=== PATIENT | male | born 1955 | race Caucasian/White ===

== ENCOUNTER 2016-09-16 10:51 | Inpatient (IN) | payer BC ==
[2016-09-16] MEDS ORDERED: NS 1,000 ML IV ONE ×2 (11:21)
[2016-09-16] MEDS ORDERED: SODIUM CHLORIDE 0.9% 3 ML FLUSH FLUSH PRN ×2 (11:21→13:44)
--- NOTE | 2016-09-16 11:32 | EDPRACDOC ---
Other History: NEW DIAGNOSIS OF ESOPHAGEAL CANCER STATUS POST ESOPHAGEAL STENT. DIFFICULTY SWALLOWING FOR 3-4 DAYS. I WOULD KEEP SOME LIQUIDS DOWN BUT MOST COMES RIGHT BACK UP. TREATMENT PLAN CONSISTED OF PLACEMENT OF PORT AND FEEDING TUBE FOR DR. RENTERIA AROUND OF [facility], AND THEN CHEMOTHERAPY AND RADIATION AROUND [facility] FOLLOWING DEFINITIVE SURGERY REMOTELY. 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 PT STATES WAS DX WITH ESOPHAGEAL CANCER AND TUMOR 1 MONTH AGO AND WENT TO [place] HAD STENT PLACED IN ESOPHAGUS BUT IT DIDNT WORK. PT HAS NO KNOWN H/O A.FIB. UPON ARRIVAL PT IS IN AFIB WITH RATE OF 155 ON BEDSIDE MONITOR. Symptoms Started: Reports: Suddenly Symptoms Description: Constant Weakness: Bilateral: Generalized Symptoms: Reports: Near Syncope, Weak Symptom Severity: Reports: Unable to performs ADL's Associated signs and symptoms:: Reports: None <Sidney Kumar - Last Filed: 09/16/16 13:41> - General Information Chief Complaint: Generalized Weakness Stated Complaint: WEAKNESS Time Seen by Provider: 09/16/16 11:18 Home Medications: Home Medications Ibuprofen 800 mg PO Q6H PRN 09/16/16 Allergies/Adverse Reactions: Allergies Allergy/AdvReac Type Severity Reaction Status Date / Time No Known Drug Allergies Allergy Unknown Verified 09/16/16 11:29 ED Past Medical History - History Reviewed Yes Nurses notes reviewed and agree except as marked Travel Outside of US in the Last 3 Months?: No - Patient Medical History Cardiac History: Reports: Other (PALPITATIONS) GI/ History: Reports: PMH GI Yes/No Other (ESOPHAGEAL CANCER AND TUMOR DXD 1 MONTH AGO) Psychological History: Denies: Depression Systemic History: Reports: Cancer (esophageal x 30 days) - Social Medical History Smoking Status: Former smoker ETOH: None Substance Abuse: None Lives With: Spouse Lives In: Home <Sidney Kumar - Last Filed: 09/16/16 13:41> EDM Review of Systems - Review of Systems ROS Negative Except as Marked: Yes All systems reviewed and were negative except as marked Constitutional: No Symptoms Reported. negative: Fever, Chills, Weakness, Fatigue, Loss of Appetite Eyes: No Symptoms Reported. negative: Redness, Blurred Vision, Double Vision, Discharge, Pain, Light Sensitive, Photophobia Ears: No Symptoms Reported. negative: Pain, Hearing Loss, Drainage, Ear Pulling Throat: No Symptoms Reported. negative: Pain, Swelling Nose: No Symptoms Reported. negative: Congestion, Bleeding, Discharge, Injection, Swelling, Deformity, Ecchymosis, Tender, Abrasion, Laceration Mouth: No Symptoms Reported. negative: Pain, Drooling Respiratory: Shortness of Breath (MILD). negative: Barky Cough, Brassy Cough, Cough, Hemoptysis, Wheezing Cardiovascular: Palpitations. negative: Chest Pain, Cyanosis, Edema, Orthopnea , PND, Syncope, Skin Mottling Gastrointestinal: No Symptoms Reported. negative: Pain, Constipation, Nausea, Vomiting, Diarrhea, Melena, Formula Intolerance Genitourinary: No Symptoms Reported. negative: Dysuria, Hematuria, Frequency, Discharge, Bleeding, Testicular Pain, Neurological: No Symptoms Reported. negative: Headache, Dizziness, Seizure, Numbness, Weakness, Speech Difficulty, Gait Difficulty Musculoskeletal: No Symptoms Reported. negative: Neck, Chestwall, Ribs, Back, Shoulder, Arm, Elbow, Forearm, Wrist, Hand, Pelvis, Hip, Femur, Knee, Leg, Ankle , Foot Integumentary: No Symptoms Reported. negative: Itching, Rash, Bruising, Wound Allergic/Immunologic: No Symptoms Reported. negative: Hives, Itching Hematologic: No Symptoms Reported. negative: Lymphadenopathy, Easy Bruising, Easy Bleeding Endocrine: No Symptoms Reported. negative: Weight Gain, Weight Loss Psychiatric: No Symptoms Reported. negative: Anxiety, Depression, Hallucinations, Insomnia, Suicidal <Sidney Kumar - Last Filed: 09/16/16 13:41> - Physical Exam Last recorded Vital Signs: Last Vital Signs Temp 98.2 F 09/16/16 11:11 Pulse 157 H 09/16/16 11:38 Resp 15 09/16/16 11:38 BP 112/68 09/16/16 11:38 Pulse Ox 94 09/16/16 11:38 Oxygen Pulse Oxygen Saturation 94 O2 Device Room Air Oxygen Flow Rate Fraction of Inspired Oxygen ( FIO2) <Vazquez,Jessica Paul - Last Filed: 09/16/16 12:49> - Physical Exam Constitutional: No apparent distress, Alert (Awake) Oriented to: Time, Person, Place Last recorded Vital Signs: Last Vital Signs Temp 98.2 F 09/16/16 11:11 Pulse 112 09/16/16 11:17 Resp 19 09/16/16 11:17 BP 110/78 09/16/16 11:17 Pulse Ox 95 09/16/16 11:17 Oxygen Pulse Oxygen Saturation 95 O2 Device Oxygen Flow Rate Fraction of Inspired Oxygen ( FIO2) - HEENT Head: Normal ( normocephalic) Eye Exam: Normal (PERRL, EOMI, Sclera white) Oropharynx: Normal (Pharynx:Moist without exudate,Gums-no swelling) Tympanic Membrane: Normal ENT EAC: Normal TMJ: Normal Nose: No Symptoms Reported (septum midline) Neck: Normal (FROM, trachea at midline) - Respiratory/Cardiovascular Respiratory: Diminished Cardiovascular: Tachycardia, Irregular (PRESUMED AFIB) - GI Auscultation: Normal (NABS) Palpation: Normal (Soft,No rebound or guarding, non distended) Tenderness: Non tender Sexton's Sign: Negative - Musculoskeletal Back: Normal (Non-Tender) Extremities: Normal (Normal tone, Pulses 2+ No cyanosis or edema, FROM) - Integumentary Skin: Normal, Warm, Dry Lymphatics: Normal (no adenopathy) - Neurologic Memory Impaired: Normal Motor Function: Normal (Normal tone, Pulses 2+ No cyanosis or edema, FROM) Cranial Nerve: Normal (CN II-X11 intact sensation, strength 5/5) Cerebellar: Normal Mood Description: Normal Perception: Normal <Sidney Kumar - Last Filed: 09/16/16 13:41> NIH Stroke Scale Initial Evaluation Level of Consciousness: Alert LOC- Question: Answers Both Correctly LOC Commands: Both Task Correctly Best Gaze: Normal Visual: No Visual Loss Facial Palsy: Normal Movement Motor Arm LEFT: No Drift Motor Arm RIGHT: No Drift Motor Leg LEFT: No Drift Motor Leg RIGHT: No Drift Limb Ataxia: Absent Sensory: Normal Best Language: No Aphasia Dysarthria: Normal Extinction and Inattention: No Abnormality (Neglect) Score: 0out of42 <Sidney Kumar - Last Filed: 09/16/16 13:41> - Results 01/16/17 11:28 09/16/16 11:28 WBC 9.1 xk/uL (3.8-10.8) 09/16/16 11:28 RBC 5.32 xM/uL (4.70-6.10) 09/16/16 11:28 Hgb 17.9 g/dL (14.0-18.0) 09/16/16 11:28 Hct 52.2 % (42-52) H 09/16/16 11:28 MCV 98 fL (80-94) H 09/16/16 11:28 MCH 33.6 pg (27-32) H 09/16/16 11:28 MCHC 34.3 g/dl (33-36) 09/16/16 11:28 RDW 12.5 % (11.5-14.5) 09/16/16 11:28 Plt Count 156 xk/uL (130-400) 09/16/16 11:28 MPV 9.6 fL (7.4-10.4) 09/16/16 11:28 Neut % (Auto) 77.8 % (45-76) H 09/16/16 11:28 Lymph % (Auto) 11.8 % (17-44) L 09/16/16 11:28 [place] % (Auto) 8.2 % (3-10) 09/16/16 11:28 Eos % (Auto) 1.8 % (0-5) 09/16/16 11:28 Baso % (Auto) 0.4 % (0-2) 09/16/16 11:28 Absolute Neuts (auto) 7.01 xk/uL (1.7-8.2) 09/16/16 11:28 Absolute Lymphs (auto) 1.00 xk/uL (0.65-4.75) 09/16/16 11:28 PT 12.8 SEC (9.2-11.2) H 09/16/16 11:28 INR 1.2 09/16/16 11:28 APTT 30.4 SEC (22-35) 09/16/16 11:28 Sodium 138 mEq/L (137-146) 09/16/16 11:28 Potassium 2.4 mEq/L (3.5-5.1) L* 09/16/16 11:28 Chloride 96 mEq/L (98-107) L 09/16/16 11:28 Carbon Dioxide 31 mMOL/L (22-33) 09/16/16 11:28 Anion Gap 13 mEq/L (8-16) 09/16/16 11:28 BUN 26 MG/DL (9-20) H 09/16/16 11:28 Creatinine 0.70 MG/DL (0.66-1.25) 09/16/16 11:28 Estimated GFR (MDRD) > 60 mL/min (>=60) 09/16/16 11:28 Glucose 99 MG/DL (70-99) 09/16/16 11:28 Calculated Osmolality 271 MOs/Kg (270-290) 09/16/16 11:28 Calcium 8.8 MG/DL (8.4-10.2) 09/16/16 11:28 Corrected Calcium 9.5 MG/DL (8.4-10.2) 09/16/16 11:28 Total Bilirubin 1.1 MG/DL (0.2-1.3) 09/16/16 11:28 AST 14 IU/L (17-59) L 09/16/16 11:28 ALT 20 IU/L (21-72) L 09/16/16 11:28 Alkaline Phosphatase 70 IU/L (38-126) 09/16/16 11:28 Troponin I < 0.01 ng/mL (<.04) 09/16/16 11:28 Vqo-M-Dpysmwtgoqy Pept 529 pg/mL (0-900) 09/16/16 11:28 Total Protein 6.8 G/DL (6.3-8.2) 09/16/16 11:28 Albumin 3.3 G/DL (3.5-5.0) L 09/16/16 11:28 Lab Results 09/16/16 09/16/16 09/16/16 11:28 11:28 11:28 WBC 9.1 RBC 5.32 Hgb 17.9 Hct 52.2 H MCV 98 H MCH 33.6 H MCHC 34.3 RDW 12.5 Plt Count 156 MPV 9.6 Neut % (Auto) 77.8 H Lymph % (Auto) 11.8 L [place] % (Auto) 8.2 Eos % (Auto) 1.8 Baso % (Auto) 0.4 Absolute Neuts (auto) 7.01 Absolute Lymphs (auto) 1.00 PT 12.8 H INR 1.2 APTT 30.4 Sodium 138 Potassium 2.4 L* Chloride 96 L Carbon Dioxide 31 Anion Gap 13 BUN 26 H Creatinine 0.70 Estimated GFR (MDRD) > 60 Glucose 99 Calculated Osmolality 271 Calcium 8.8 Corrected Calcium 9.5 Total Bilirubin 1.1 AST 14 L ALT 20 L Alkaline Phosphatase 70 Troponin I < 0.01 Bwk-Q-Llmepyqapmt Pept 529 Total Protein 6.8 Albumin 3.3 L - Diagnostic Imaging Chest Image interpreted by: Radiologist Patient Name: PINA SCHROEDER LOC: ED : 1955 AGE: 61 Order Date:09/16/16 Date of Service: Report # [id number] Ord Physician: Sidney Kumar Exam # [id number] Emergency Physician: Provider,ER Exam(s): [id number] RAD/DG CHEST PORTABLE CLINICAL DATA: Onset of dizziness and lightheadedness this morning. Initial encounter. EXAM: PORTABLE CHEST 1 VIEW COMPARISON: None. FINDINGS: The lungs are clear. Heart size is normal. There is no pneumothorax or pleural effusion. No focal bony abnormality is identified. IMPRESSION: Negative chest. Electronically Signed By: Moe Boss M.D. On: 09/16/2016 12:20 Electronically Signed By: Moe Dyson MD Electronically Signed Date/Time: 223 Dictate Date/Time: 09/16/16 1220 Technologist: Josselin Alaniz Transcribed By: Jackson Transcribed Date/Time: 09/16/16 1220 <Jessica Vazquez - Last Filed: 09/16/16 12:49> - Differential Diagnosis Anemia, Dehydration, Electrolyte disorder, Other (AFIB WITH RVR) - Re-evaluation Re-evaluation 1 Re-evaluation Time: 11:44 (PT HAD SEVERAL MINUTES OF RATE CONTROLLED AFIB BUT IS NOW BOUNCING BETWEEN 109 AND 150 HR. ) - Results 09/16/16 11:28 09/16/16 11:28 - EKG EKG #1 EKG Time: 11:21 -: Yes EKG interpreted by me Rate: bpm: 130 [place]: Normal Rhythm: Afib (WITH RVR), PVCs Block: None Hypertrophy: None ST: Inf (POSSIBLE INFERIOR SUBENDOCARDIAL INJURY) <Sidney Kumar - Last Filed: 09/16/16 13:41> - Departure Yes I personally saw and evaluated the patient. Decision to Admit Time: 12:56 Decision to admit date: 09/16/16 Decision to admit: from ED - Physician Consulted Hospitalist Time Called: 12:50 Provider Called: Parris Sargent Time Senior Infrastructure Architect Returned Call: 12:54 <Jessica Vazquez - Last Filed: 09/16/16 12:49> - Departure Education/Counseling Given To: Patient Education/Counseling Given Regarding: Diagnosis, Treatment, Prognosis, Follow Up <Sidney Kumar - Last Filed: 09/16/16 13:41> - Departure Final Diagnosis: Hypokalemia, Atrial fibrillation with rapid ventricular response, Dehydration Esophageal cancer Qualifiers: Malignant neoplasm of esophagus location: unspecified location Qualified Code(s ): C15.9 - Malignant neoplasm of esophagus, unspecified Instructions: Weakness (General), Atrial Fibrillation (ED) Referrals: None,No Provider [Primary Care Provider] - One Week Forms: ED Discharge Instructions
[2016-09-16 11:42] LABS: AUTOMATED BASOPHIL 0.4 % (0-2); AUTOMATED EOSINOPHIL 1.8 % (0-5); AUTOMATED LYMPH 11.8 % (17-44); AUTOMATED MONOCYTE 8.2 % (3-10); AUTOMATED NEUTROPHIL 77.8 % (45-76); MPV 9.6 fL (7.4-10.4)
[2016-09-16] MEDS ORDERED: DILTIAZEM 25 MG/5 ML VIAL IV ONE (11:45)
[2016-09-16] MEDS: DILTIAZEM 25 MG/5 ML VIAL IV ONE ×2 (11:46→12:51)
[2016-09-16 11:53] LABS: PARTIAL THROMB. TIME 30.4 SEC (22-35); PT-INR 1.2
[2016-09-16] MEDS ORDERED: Diltiazem HCl 100 MG in D5W 100 ML IV SCH ×2 (12:00→13:49)
[2016-09-16] MEDS ORDERED: Pharmacy Review for Metformin - IV Contrast Given SCH (12:00)
[2016-09-16 12:03] LABS: BLOOD UREA NITROGEN 26 MG/DL (9-20); CALC CORRECTED 9.5 MG/DL (8.4-10.2); CALCIUM 8.8 MG/DL (8.4-10.2); CALCULATED OSMOLALITY 271 MOs/Kg (270-290); CHLORIDE 96 mEq/L (98-107); GLUCOSE 99 MG/DL (70-99); SODIUM LEVEL 138 mEq/L (137-146); TOTAL PROTEIN 6.8 G/DL (6.3-8.2)
--- NOTE | 2016-09-16 12:23 | DIRPT ---
CLINICAL DATA: Onset of dizziness and lightheadedness this morning. Initial encounter. EXAM: PORTABLE CHEST 1 VIEW COMPARISON: None. FINDINGS: The lungs are clear. Heart size is normal. There is no pneumothorax or pleural effusion. No focal bony abnormality is identified. IMPRESSION: Negative chest. Electronically Signed By: Moe Boss M.D. On: 09/16/2016 12:20
[2016-09-16] MEDS: Diltiazem HCl 100 MG in D5W 100 ML IV SCH ×3 (12:50→22:25)
[2016-09-16] MEDS ORDERED: ACETAMINOPHEN 325 MG/TAB TABLET PO PRN (13:44)
[2016-09-16] MEDS ORDERED: Aluminum;Magnesium;Simethicone 30 ML UDC PO PRN (13:44)
[2016-09-16] MEDS ORDERED: ONDANSETRON HCL 4 MG/2 ML VIAL IV PRN (13:44)
[2016-09-16] MEDS ORDERED: ALBUTEROL 0.083% 3 ML NEB NEB PRN (13:44)
[2016-09-16] MEDS ORDERED: METOCLOPRAMIDE 10 MG/2 ML VIAL IV PRN (13:44)
[2016-09-16] MEDS ORDERED: ACETAMINOPHEN 650 MG SUPP PR PRN (13:44)
[2016-09-16] MEDS ORDERED: TUSSIONEX 5 ML ORAL SYRINGE PO PRN (13:44)
[2016-09-16] MEDS ORDERED: MAGNESIUM HYDROXIDE 30 ML BOTTLE PO PRN (13:44)
--- NOTE | 2016-09-16 13:51 | DIRPT ---
ADDENDUM REPORT: 09/16/2016 14:19 ADDENDUM: The lesion in the right lobe of the liver is likely a cyst. It is not completely imaged or characterized on this examination given borderline attenuation value. Consider hepatic ultrasound to confirm that it is a cyst. Electronically Signed By: Awais Pham M.D. On: 09/16/2016 14:19 CLINICAL DATA: Hypoxia, new onset atrial fibrillation, history of esophageal cancer, weakness and dizziness this morning EXAM: CT ANGIOGRAPHY CHEST WITH CONTRAST TECHNIQUE: Multidetector CT imaging of the chest was performed using the standard protocol during bolus administration of intravenous contrast. Multiplanar CT image reconstructions and MIPs were obtained to evaluate the vascular anatomy. CONTRAST: 80 mL Isovue 370 COMPARISON: 09/16/2016 chest radiograph FINDINGS: No filling defects in the pulmonary arterial. No evidence of thoracic aortic dilatation. There is severe dilatation of the esophagus to 4 cm diameter. An esophageal stent extends from the level of the thoracic inlet into the more distal esophagus 3 cm below the guille. Dilatation extends all the way to the gastroesophageal junction. The esophagus and the stent are both filled with solid material in the upper thorax. There are tiny calcified right hilar lymph nodes. There is no enlarged adenopathy in the thorax. Lungs are clear. No pleural effusions. Images through the upper abdomen demonstrate a low-attenuation lesion in the posterior right lobe of the liver measuring about 1.5 cm with average attenuation value of 25. There is mild fullness of both adrenal glands with no adrenal gland mass. There are no acute or focally suspicious osseous abnormalities. The T11 vertebral body shows mild superior endplate compression deformity which appears nonacute. There is mild compression deformity of T8 and T9 also without evidence of acute fracture. Review of the MIP images confirms the above findings. IMPRESSION: No evidence of pulmonary arterial embolism. Severe diffuse esophageal dilatation with stent as described above. Electronically Signed: By: Awais Pham M.D. On: 09/16/2016 13:48
[2016-09-16] MEDS ORDERED: OXYCODONE HCL 5 MG TABLET PO PRN ×2 (13:53→13:54)
[2016-09-16] MEDS: KCl 10 mEq/100 ml Premix (Run) 10 MEQ/100 ML RTU IV SCH ×2 (13:53→16:30)
[2016-09-16] MEDS ORDERED: MORPHINE 2 MG/ML INJECTION IV PRN (13:55)
--- NOTE | 2016-09-16 13:59 | HISTPHYS ---
- Chief Complaint Dizziness and generally feeling very ill with palpitations since this morning. - History of Present Illness 61-year-old gentleman presents to our emergency department complaining of dizziness and palpitations which were severe this morning. He has had previous episodes of this but never sought any attention for it. He associates it with taking medications or things that would make his heart rate go up. Patient significant past medical history is that a month ago he was diagnosed with esophageal cancer at [place]. He was sent to [facility] for placement of an esophageal stent which was rather successful except that several days after placement of the stent it migrated into his colon. Recent x-ray or films show that he has a metal object in his ascending colon. And no stent is noted in the esophagus. He has had great difficulty drinking anything or even eating anything he is unable to even get liquids in. According to his son he has had a greater than 30 lb weight loss since August. Patient in the emergency department was trying to have some ice chips and kept regurgitating them he was unable to swallow them. He has great difficulty recently with dehydration given that he cannot eat or drink anything. In the emergency department an EKG was obtained and showed atrial fibrillation with rapid ventricular response. He was given a dose of diltiazem and his heart rate is coming down nicely. He is on a diltiazem drip. He has scheduled him today for a PEG tube and port placement. That had to be canceled. I have a call in to Dr. Quispe to reschedule for tomorrow. Given his above signs and symptoms and very generally poor condition at this point patient will be admitted into the hospital for further evaluation and management of atrial fibrillation. - Medical History Cardiac History: Reports: Other (PALPITATIONS) Respiratory History: Reports: No Significant History GI/ History: Reports: PMH GI Yes/No Other (ESOPHAGEAL CANCER AND TUMOR DXD 1 MONTH AGO) Musculoskeletal History: Reports: No Significant History Systemic History: Reports: Cancer (esophageal x 30 days) Neurological History: Reports: No Significant History Psychological History: Reports: No Significant History. Denies: Depression - Surgical History Reports: Other (Esophageal stent placement) - Medictions/Allergies Allergies No Known Drug Allergies Allergy (Verified 09/16/16 11:29) Unknown Current Medication List: Reviewed Home Medications Ibuprofen 800 mg PO Q6H PRN 09/16/16 - Family History Reports: No Significant History - Social History Travel Outside of US in the Last 3 Months?: No Lives: with Spouse, With Family Smoking Status: Heavy tobacco smoker (5 or more cigarettes/day or daily pipe/ cigar) (Patient quit after he finished his pack a cigarettes over the weekend) Social History: Denies: Alcohol Use, Substance Use Disorder - Review of Systems Constitutional: Fatigue, Weakness, Weight loss. negative: Chills, Fever, Diaphoresis Eyes: No Symptoms Reported (No blurry vision, visual changes, eye pain, or eye redness.) Ears: No Symptoms Reported (No ear pain or discharge) Nose: No Symptoms Reported (No nasal discharge/congestion or bleeding) Mouth: No Symptoms Reported (No oropharyngeal lesions or erythema) Throat/Neck: No Symptoms Reported (No throat pain or swelling.No oropharyngeal lesions or erythema.) Respiratory: No Symptoms Reported Cardiovascular: Palpitations Gastrointestinal: Nausea, Vomiting, Dysphasia Genitourinary: No Symptoms Reported (No dysuria or hematuria.) Neurological: No Symptoms Reported (No headache, dizziness, seizures, or focal weakness.) Musculoskeletal:: No Symptoms Reported Integumentary: No Symptoms Reported (no rashes or lesions) Hematologic: No Symptoms Reported (No chronic anemia, bleeding, or easy bruising.), Other (Lymphatics- no lymph node swelling or pain.) Endocrine: No Symptoms Reported (No thyroid issues, polyuria, or polydipsia.) Psychiatric: No Symptoms Reported (Fully oriented, with normal and appropriate affect.) - Physical Exam Vital Signs: Initial Vitals Temperature 98.2 F 09/16/16 11:11 Pulse Rate 128 H 09/16/16 11:11 Respiratory Rate 16 09/16/16 11:11 Blood Pressure 138/92 09/16/16 11:11 Pulse Oxygen Saturation 95 09/16/16 11:11 Constitutional: Cachectic, Distress (Retching). negative: Well nourished, Well appearing - HEENT Head: Normal (normocephalic, atraumatic.), Other (No cervical lymphadenopathy. No supraclavicular lymphadenopathy. Neck: No palpable mass, supple , trachea midline.) Eye: Normal (pupils equal, reactive to light, and round; EOMI, Sclera white) Nose: No Symptoms Reported (septum midline, Nares patent, without discharge or bleeding.) Respiratory: Normal - CTA (Clear to auscultation bilaterally. No wheezing, rales , rhonchi. Chest wall movements are symmetric. No use of accessory muscles to breathe.) Cardiovascular: Tachycardia, Irregular - GI Auscultation: Normal (normal active sounds) Palpation: Normal (Soft,non distended,nontender. No hepatosplenomegaly.) Tenderness: Non tender (No rebound or guarding) - Musculoskeletal Back: Normal (Non-Tender) Extremities: Normal (Normal tone, DP pulses 2+ bilaterally, No cyanosis or edema bilaterally, FROM bilaterally.) - Integumentary Skin: Normal (Clean, dry, and intact. No rashes. No lesions.) Lymphatics: Normal (No cervical lymphadenopathy. No supraclavicular lymphadenopathy.) - Neurologic Memory Impaired: Normal Motor Function: Normal (Motor 5/5 throughout.Normal tone, Pulses 2+ No cyanosis or edema, FROM) Cranial Nerve: Normal (CN II-XII intact sensation, strength 5/5) Cerebellar: Normal Mood Description: Normal (Fully oriented. Normal and appropriate affect.) Thought: Coherent Perception: Normal - Focused CV Perfusion Exam Vital Signs: Last Vital Signs Temp 98.2 F 09/16/16 11:11 Pulse 76 09/16/16 13:21 Resp 20 09/16/16 13:21 BP 145/82 09/16/16 13:21 Pulse Ox 95 09/16/16 13:21 - Lab Results Laboratory Tests 09/16/16 09/16/16 09/16/16 11:28 11:28 11:28 WBC 9.1 RBC 5.32 Hgb 17.9 Hct 52.2 H MCV 98 H MCH 33.6 H MCHC 34.3 RDW 12.5 Plt Count 156 MPV 9.6 Neut % (Auto) 77.8 H Lymph % (Auto) 11.8 L [place] % (Auto) 8.2 Eos % (Auto) 1.8 Baso % (Auto) 0.4 Absolute Neuts (auto) 7.01 Absolute Lymphs (auto) 1.00 PT 12.8 H INR 1.2 APTT 30.4 Sodium 138 Potassium 2.4 L* Chloride 96 L Carbon Dioxide 31 Anion Gap 13 BUN 26 H Creatinine 0.70 Estimated GFR (MDRD) > 60 Glucose 99 Calculated Osmolality 271 Calcium 8.8 Corrected Calcium 9.5 Phosphorus Magnesium Total Bilirubin 1.1 AST 14 L ALT 20 L Alkaline Phosphatase 70 Troponin I < 0.01 Rwm-T-Hclzbyzzthe Pept 529 Total Protein 6.8 Albumin 3.3 L 09/16/16 11:28 WBC RBC Hgb Hct MCV MCH MCHC RDW Plt Count MPV Neut % (Auto) Lymph % (Auto) [place] % (Auto) Eos % (Auto) Baso % (Auto) Absolute Neuts (auto) Absolute Lymphs (auto) PT INR APTT Sodium Potassium Chloride Carbon Dioxide Anion Gap BUN Creatinine Estimated GFR (MDRD) Glucose Calculated Osmolality Calcium Corrected Calcium Phosphorus 3.3 Magnesium 2.20 Total Bilirubin AST ALT Alkaline Phosphatase Troponin I Joz-M-Oikylvdzuyq Pept Total Protein Albumin - Diagnostic Findings EXAM: CT ANGIOGRAPHY CHEST WITH CONTRAST TECHNIQUE: Multidetector CT imaging of the chest was performed using the standard protocol during bolus administration of intravenous contrast. Multiplanar CT image reconstructions and MIPs were obtained to evaluate the vascular anatomy. CONTRAST: 80 mL Isovue 370 COMPARISON: 09/16/2016 chest radiograph FINDINGS: No filling defects in the pulmonary arterial. No evidence of thoracic aortic dilatation. There is severe dilatation of the esophagus to 4 cm diameter. An esophageal stent extends from the level of the thoracic inlet into the more distal esophagus 3 cm below the guille. Dilatation extends all the way to the gastroesophageal junction. The esophagus and the stent are both filled with solid material in the upper thorax. There are tiny calcified right hilar lymph nodes. There is no enlarged adenopathy in the thorax. Lungs are clear. No pleural effusions. Images through the upper abdomen demonstrate a low-attenuation lesion in the posterior right lobe of the liver measuring about 1.5 cm with average attenuation value of 25. There is mild fullness of both adrenal glands with no adrenal gland mass. There are no acute or focally suspicious osseous abnormalities. The T11 vertebral body shows mild superior endplate compression deformity which appears nonacute. There is mild compression deformity of T8 and T9 also without evidence of acute fracture. Review of the MIP images confirms the above findings. IMPRESSION: No evidence of pulmonary arterial embolism. Severe diffuse esophageal dilatation with stent as described above. Electronically Signed By: Awais Pham M.D. On: 09/16/2016 13:48 EXAM: PORTABLE CHEST 1 VIEW COMPARISON: None. FINDINGS: The lungs are clear. Heart size is normal. There is no pneumothorax or pleural effusion. No focal bony abnormality is identified. IMPRESSION: Negative chest. Electronically Signed By: Moe Boss M.D. On: 09/16/2016 12:20 - Assessment (1) Atrial fibrillation with rapid ventricular response I48.91 - UNSPECIFIED ATRIAL FIBRILLATION Acute Present on Admission: Yes Admit start on diltiazem drip consult Cardiology. (2) Sudden blockage of esophagus K22.2 - ESOPHAGEAL OBSTRUCTION Acute Present on Admission: Yes Will ask Dr. Marcum to evaluate suspect that stents may have moved down into his GI tract. (3) Dehydration E86.0 - DEHYDRATION Acute Present on Admission: Yes IV fluid resuscitation. (4) Esophageal cancer C15.9 - MALIGNANT NEOPLASM OF ESOPHAGUS, UNSPECIFIED Chronic Present on Admission: Yes Qualifiers: Malignant neoplasm of esophagus location: lower third Qualified Code(s): C15.5 - Malignant neoplasm of lower third of esophagus For radiation and chemo per Dr. sada Saldivar. (5) Hypokalemia E87.6 - HYPOKALEMIA Acute Present on Admission: Yes Replete IV. Case Care Discussed with: Patient, Nursing Staff Total Time: 55 minutes Critical Care: No Couseling Time (>50% in counseling/coordination): No
[2016-09-16] MEDS: SODIUM CHLORIDE 0.9% 3 ML FLUSH FLUSH SCH (14:52)
[2016-09-16] MEDS: NS 1,000 ML IV SCH ×2 (15:00→16:22)
--- NOTE | 2016-09-16 15:27 | CAPUECHO ---
INDICATION: NEW DX A-FIB HEIGHT: 185.4 cm (6 ft 1.0 in) WEIGHT: 68.0 kg (150.0 lbs) BP: 128/85 BSA: 1.800261 m MEASUREMENTS 2D RVIDd: 2.5 cm LVOT Diam: 2.1 cm EF Biplane: 61.31 % LAESV MOD A4C: 37.0 ml LAESV MOD A2C: 46.8 ml LAESV Index (A-L): 30.61 ml/m M-MODE IVSd: 0.8 cm LVIDd: 5.8 cm LVPWd: 0.8 cm LVIDs: 3.9 cm EF(Teich): 60 % Ao Diam: 3.2 cm LA Diam: 2.8 cm DOPPLER MV E Kyrie: 0.49 m/s MV A Kyrie: 0.79 m/s MV PHT: 18.03 ms MVA By PHT: 12.20 cm LVOT Vmax: 1.03 m/s AV Vmax: 2.20 m/s DANY Vmax, Pt: 1.62 cm TR Vmax: 2.73 m/s TR maxP mmHg RVSP: 50.92 mmHg FINDINGS ------- Procedure:2D images, m-mode, color and spectral Doppler were obtained and reviewed. ECG rhythm:Atrial fibrillation. Resting tachycardia (HR>100bpm). Study quality:This was a technically adequate study. Left Ventricle:The left ventricular size is normal. Left ventricular wall thickness is normal. T here is normal global left ventricular contractility. Overall left ventricular systolic function i s normal with, an EF between 60 - 65 %. No regional wall motion abnormalities were noted. Right Ventricle:The right ventricle is normal in size and function. Left Atrium:Left atrium is mildly dilated by volume. Right Atrium:The right atrium is normal in size and function. Aortic Valve:There is mild aortic valve sclerosis. There is vyou-yt-nozdnqae aortic regurgitation. The aortic pressure half-time by doppler 414ms. There is no evidence of aortic stenosis. Mitral Valve:Normal appearing mitral valve. No mitral regurgitation. Tricuspid Valve:The tricuspid valve appears structurally normal. Mild tricuspid regurgitation pres ent. The right ventricular systolic pressure, as measured by Doppler, is 51mmHg. Pulmonic Valve:The pulmonic valve is normal. Trace/mild (physiologic) pulmonic regurgitation. Aorta:The aortic root, ascending aorta and aortic arch not visualized. IVC:Normal inferior vena cava with normal inspiratory collapse. Pericardium:The pericardium is normal. There is no pericardial effusion. CONCLUSIONS 1. Atrial fibrillation. 2. There is normal global left ventricular contractility. 3. Overall left ventricular systolic function is normal with, an EF between 60 - 65 %. 4. Left atrium is mildly dilated by volume. 5. There is jamg-gg-kaftmmzx aortic regurgitation. Electronically Signed By: Nilo Francisco MD, FACC Electronically Signed On: 15:27:16
[2016-09-16] MEDS: Albuterol/Ipratropium Neb 3 ML NEB NEB SCH ×2 (15:45→19:06)
[2016-09-16] MEDS: BuPROPion 150 MG SR TAB PO SCH (16:19)
[2016-09-16] MEDS: NICOTINE 21 MG PATCH TOP SCH (16:19)
[2016-09-16] MEDS: NS/KCl 20 mEq 1,000 ML IV SCH ×2 (16:20→22:20)
[2016-09-16 16:28] LABS: LEUKOCYTES/URINE NEG (NEGATIVE); NITRITE/URINE NEG (NEGATIVE); URINE OCCULT BLOOD NEG (NEG/TRACE)
[2016-09-16] MEDS ORDERED: Vaccine Screening Complete SCH (17:00)
[2016-09-16] MEDS ORDERED: SODIUM CHLORIDE 0.9% 3 ML FLUSH FLUSH SCH (18:00)
[2016-09-16] MEDS ORDERED: ENOXAPARIN 40 MG/0.4 ML PFS SQ SCH (18:00)
[2016-09-16] MEDS: METOPROLOL TARTRATE 50 MG TAB PO SCH (20:36)
--- NOTE | 2016-09-16 23:10 | PMOCONSULT ---
Date of Service:: 09/13/16 Medical Oncology Consultation: HISTORY OF PRESENT ILLNESS: The patient is a 61-year-old gentleman who I was asked to consult upon for newly diagnosed esophageal cancer. According to the patient, he has had dysphagia for the past 2 months. In July 2016, he recalls increasing the amount of Rolaids he was taking on a daily basis. However, this did not help. His primary care physician then placed him on reflux medicine, but his dysphagia persisted. Eventually, he was sent for a barium swallow, which came back markedly abnormal. This led to him undergoing an EGD at [facility], which showed a malignant stricture in his mid esophagus, approximately 30 cm from his incisors. This lesion extended 10 cm. A biopsy of this lesion was done, which came back consistent with moderately differentiated squamous cell carcinoma. During this procedure, an esophageal stent was placed, which briefly help with his dysphagia. However, over the next few days, his dysphagia gradually returned. Currently, this gentleman essentially throws up everything he consumes. He has also had a significant decrease in his urinary output. His claims he was hospitalized recently and was given 7 L of fluid to make him euvolemic. The patient claims he has not had a bowel movement in 2 weeks. He also has lost 66 lb since April 2016. Staging CT scans were done in August 2016, for which a subtle irregularity could be seen in his mid esophageal wall, which was concerning for invasion of his cancer into his paraesophageal fat. Also seen was a 1.1 cm gastrohepatic ligament lymph node that was worrisome for lawson metastasis. A 7mm sclerotic lesion was seen in his left femoral head. A small pulmonary nodule in his right upper lobe was also seen. Both lesions were too small to determine their significance. Incidentally seen was a metallic body in his ascending colon. There was no evidence of metastatic disease to any internal organs. PAST MEDICAL HISTORY: Essentially unremarkable. However, this patient was not being routinely followed by a primary care physician. PAST SURGICAL HISTORY: He has had no previous surgeries CURRENT MEDICATIONS: Ibuprofen p.r.n. ALLERGIES: He has no known drug allergies FAMILY HISTORY: His mother from a heart attack. His father from complications of cirrhosis. He has 1 brother who has had at least 3 heart attacks. SOCIAL HISTORY: The patient was born and raised in [facility] [place] He currently lives in the [place] community with his of 38 years. He has 2 children and 5 grandchildren. 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 He has smoked at least a pack of cigarettes daily for the past 45 years. He quit alcohol a few months ago, but was routinely drinking as many as 8-10 beers daily for numerous years. REVIEW OF SYSTEMS: CARBONATOR: The patient denies headaches, changes in hearing, vision, balance or coordination. PULMONARY: The patient has an occasional productive cough of clear phlegm. CARDIAC: The patient denies angina, heart palpitations, or heart failure issues. GI: The patient has upper abdominal pain, dysphagia, and odynophagia. He has not had any bowel movements over the past few weeks. : The patient denies hematuria, dysuria, or increased urinary frequency. MUSCULOSKELETAL: The patient denies arthralgias, myalgias, or joint effusions. ENDOCRINE: The patient denies diabetes, hypercholesterolemia, thyroid, or pituitary gland disorders. PSYCHIATRIC: The patient denies depression, anxiety, or other mood disorders. DERMATOLOGIC: The patient denies petechia, purpura, or other abnormal skin lesions. CONSTITUTION: The patient denies fevers, night sweats, but has had a decreased energy level. PHYSICAL EXAMINATION: Vital signs include a weight of 152 lb, temperature 97.5 , pulse 88, respirations 16, blood pressure 137/81 GENERAL: The patient is alert and oriented x3, in no acute distress. HEENT EXAM: Clear oropharynx with no exudate or lesions appreciated. LUNG EXAM: Clear to auscultation bilaterally. CARDIAC EXAM: Regular rate and rhythm. No murmurs, rubs, or gallops. ABDOMINAL EXAM: Soft, nontender and nondistended; no hepatosplenomegaly. EXTREMITY EXAM: No clubbing, cyanosis, or edema. LYMPH NODE SURVEY: No palpable cervical, supraclavicular, axillary, or inguinal lymphadenopathy. NEUROLOGIC EXAM: Cranial nerves II-XII and cerebellar functions are grossly intact. SKIN EXAM: No petechiae, purpura or other abnormal skin lesions are appreciated. 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 Based upon his scans, there is no obvious evidence of metastasis, but it clearly appears he already has evidence of locally advanced disease. Because of this, I do not believe there is additional worth with getting an endoscopic ultrasound. Ideally, with locally advanced esophageal cancer, the definitive treatment plan consists of undergoing neoadjuvant chemoradiation, followed by a total esophagectomy. Such a treatment plan is usually designed with the intent of curing a person of this malignancy. Although this is what I would like to do for this patient, I am concerned with his baseline health and whether he could go through this entire treatment plan. As he does have squamous cell carcinoma , the chemotherapy I would like to give this gentleman would be weekly carboplatin/paclitaxel. This would be given in conjunction with daily radiation for approximately 6 weeks. I will have him see radiation oncology early next week so they may begin formulating his neoadjuvant radiation treatment plan. Afterwards, I would likely repeat a PET scan to ascertain his local disease response, as well as to ensure there is no occult evidence of metastatic disease before potentially undergoing surgery. If not, and if his health is decent enough, he would then be referred to a thoracic surgeon to undergo a total esophagectomy. I will have this patient see Dr. Kalin Quispe in the forthcoming week so he can place a port and feeding tube in preparation for his upcoming treatments. As mentioned previously, this gentleman did have an esophageal stent; I am concerned this stent likely migrated into his ascending colon, which is likely the metal object seen on his recent CT scans. I will talk to local GI doctors to see if they have the ability to place an esophageal stent to help with his dysphagia/odynophagia. If not, then the patient understands his feeding tube will be the main source through which he will maintain decent nutrition and caloric intake over these next few weeks/ months. I will see this patient back in approximately 1 month for repeat clinical assessment. Hopefully, by then, the patient will have already commenced with his concurrent chemoradiation. Although understandably concerned about what was discussed today, the patient and his understand all the plans and are in agreement with them. I do appreciate Dr Regino Fofana for this new consult.
[2016-09-17] MEDS: Albuterol/Ipratropium Neb 3 ML NEB NEB SCH ×4 (01:19→20:02)
[2016-09-17 05:36] LABS: AUTOMATED BASOPHIL 0.4 % (0-2); AUTOMATED EOSINOPHIL 1.3 % (0-5); AUTOMATED LYMPH 11.3 % (17-44); AUTOMATED MONOCYTE 8.4 % (3-10); AUTOMATED NEUTROPHIL 78.6 % (45-76)
[2016-09-17 05:47] LABS: ALLEN'S TEST PASS
[2016-09-17 05:48] LABS: % OXYHEMOGLOBIN 94.7 % (95-98); ABG Draw Site Right Radial; HEMOGLOBIN 16.3 G/DL (14.0-18.0); TCO2 26.6 MMOL/L (23-27)
[2016-09-17 05:49] LABS: CARBOXY HGB 2.5; O2 CONCENTRATION 98.7 VOL % (17.6-24.3)
[2016-09-17 05:50] LABS: BLOOD UREA NITROGEN 16 MG/DL (9-20); CALCIUM 8.3 MG/DL (8.4-10.2); CALCULATED OSMOLALITY 275 MOs/Kg (270-290); CHLORIDE 104 mEq/L (98-107); GLUCOSE 76 MG/DL (70-99); SODIUM LEVEL 143 mEq/L (137-146)
[2016-09-17] MEDS: NS/KCl 20 mEq 1,000 ML IV SCH ×4 (06:07→20:54)
[2016-09-17] MEDS: SODIUM CHLORIDE 0.9% 3 ML FLUSH FLUSH SCH ×2 (06:36→17:33)
[2016-09-17] MEDS: Diltiazem HCl 100 MG in D5W 100 ML IV SCH ×2 (07:28→18:21)
[2016-09-17] MEDS: METOPROLOL TARTRATE 50 MG TAB PO SCH ×2 (08:13→20:21)
[2016-09-17] MEDS: POTASSIUM CHLORIDE 20 MEQ TAB PO SCH ×2 (08:13→12:54)
[2016-09-17] MEDS: KCL 20 mEq/100 ml Premix Run 20 MEQ/100 ML RTU IV SCH ×2 (08:13→12:50)
[2016-09-17] MEDS: BuPROPion 150 MG SR TAB PO SCH (08:13)
--- NOTE | 2016-09-17 09:16 | PCM.CONSGI ---
Consult Date: 09/17/16 Consult Requesting Physician: Sunita Sotelo Consult Reason: Other (esophagsel cancer dysphagia) - History of Present Illness Mr. Bryson is a 61-year-old male with recent diagnosis of squamous cell esophageal cancer. He had a esophageal stent placed in [facility] this month. He presented with dehydration and esophageal obstruction. A GI consult was obtained. Mr. Lackey reported dysphagia for several months. He presented the [place]. He was diagnosed with esophageal mass. He was transferred to [facility]. Upper endoscopy was performed with a near obstructing mass noted in the mid distal esophagus. A 10 cm stent was placed. The patient was discharged in tolerating liquids well. He reports within 48 hours his obstruction reoccurred. He did not apparently contour but any body concerning this. He was seen by Dr. Saldivar in Oncology and is to receive radiation and chemotherapy apparent for his squamous cell esophageal cancer. He has not been seen by radiation therapy. I contacted Dr. Rojo had [place]. The patient was discussed. She faxed to his prior endoscopy report which is on the chart. After discussion he was arrange for upper endoscopy and possible gastrostomy tube placement. He was originally scheduled for port and gastrostomy tube placement by Dr. Quispe as yesterday but did not have this performed because of his dehydration and hypotension on admission. Mr. Lackey is unable to handle his own secretions. He also has a chronic cough. He says he is regurgitating boluses of dark fluid. He has not tried to drink liquids. He has eaten no solid food since prior to his stent placement - Past Medical History Respiratory History: Reports: COPD, Other GI/ History: Reports: No Significant History, Gastrointestinal Cancers ( Esophageal) Musculoskeletal History: Reports: No Significant History Systemic History: Reports: No Significant History Neurological History: Reports: No Significant History Psychological History: Reports: No Significant History. Denies: Alcoholism, Depression, Substance Use Disorder - Surgical History Past Surgical History: Reports: No Significant History - Procedure History Procedure History: Reports: Endoscopy (With esophageal stent placement) - Family History Family History: Reports: Cardiac Disorders (brother), Hypertension (parents) - Allergies Allergies No Known Drug Allergies Allergy (Verified 09/16/16 15:27) Unknown - Medications Home Medications Ibuprofen 800 mg PO Q6H PRN 09/16/16 - Social History Lives: with Spouse, With Family Smoking Status: Former smoker Social History: Denies: Alcohol Use, Substance Use Disorder - Review of Systems Constitutional: Fatigue, Weakness, Weight loss. negative: Chills, Fever Eyes: negative: Blurred Vision, Double Vision Ears: negative: Hearing Loss Throat: Hoarseness Nose: negative: Congestion Respiratory: Cough, Shortness of Breath Cardiovascular: negative: Chest Pain, Edema Gastrointestinal: Vomiting, Dysphasia. negative: Melena, Hematochezia Genitourinary: negative: Hematuria Neurological: Dizziness, Gait Difficulty Musculoskeletal: Arthritis Integumentary: negative: Bruising Allergic/Immunologic: negative: Itching Hematologic: negative: Easy Bruising Endocrine: Weight Loss Psychiatric: negative: Anxiety - Exam Vital Signs: Temperature: 97.9 F (09/17/16 07:19) HR: 67 (09/17/16 07:19) RR: 18 (09/17/16 07:19) BP: 162/86 (09/17/16 07:19) Pulse Ox: 97 (09/17/16 07:19) General: Alert, Cooperative, Mild distress HEENT: negative: Icteric Sclera Respiratory: Accessory Muscle Use, Rhonchi, Wheezes Cardiovascular: Regular rate Gastrointestinal: Soft, Bowel Sounds. negative: Distended, Tender Extremities: negative: Edema Skin: Warm,Dry and Intact Neurological: Normal speech Psych/Mental Status: Appropriate - Labs Result Diagrams: 09/17/16 05:10 09/17/16 05:10 Laboratory Tests 09/16/16 09/16/16 09/17/16 11:28 11:28 05:29 PT 12.8 H INR 1.2 pCO2 35.0 pO2 101.0 H HCO3 25.5 Total CO2 26.6 ABG pH 7.470 H ABG Hemoglobin 16.3 ABG Oxyhemoglobin 94.7 L Total O2 Concentration 98.7 H FiO2 % 2 Total Bilirubin 1.1 AST 14 L ALT 20 L Iqs-X-Cezuyxybwcl Pept 529 Total Protein 6.8 Albumin 3.3 L - Assessment and Plan (1) Esophageal obstruction Acute K22.2 - ESOPHAGEAL OBSTRUCTION (2) Esophageal cancer Acute C15.9 - MALIGNANT NEOPLASM OF ESOPHAGUS, UNSPECIFIED lower third C15.5 - Malignant neoplasm of lower third of esophagus (3) Dehydration Acute E86.0 - DEHYDRATION (4) Atrial fibrillation with rapid ventricular response Acute I48.91 - UNSPECIFIED ATRIAL FIBRILLATION Recommendations: 1. Arrange for upper endoscopy 2. Ppi therapy 3. Continue care of his other medical problems 4. Other recommendations after upper endoscopy is been performed
[2016-09-17] MEDS ORDERED: DIPHENHYDRAMINE 50 MG/ML VIAL ONE (10:16)
[2016-09-17] MEDS ORDERED: NS 1,000 ML IV ONE (10:16)
[2016-09-17] MEDS ORDERED: MIDAZOLAM 5 MG/5 ML VIAL ONE (10:16)
[2016-09-17] MEDS ORDERED: MEPERIDINE 25 MG/ML TUBEX ONE (10:16)
[2016-09-17] MEDS ORDERED: LIDOCAINE 1% 5 ML (METHYLPARABEN FREE) ONE ×2 (11:11)
--- NOTE | 2016-09-17 12:43 | HIMOPRPT ---
DATE OF PROCEDURE: 09/17/16 PROCEDURE: EGD INDICATIONS: History of esophageal cancer with recent placement of esophageal stent at [facility] with esophageal obstruction needing gastrostomy tube INSTRUMENTS: Olympus video upper endoscope. MEDICATIONS: Versed 9 mg IV and Demerol 100 mg IV. PHYSICAL EXAMINATION: GENERAL: The patient was in no distress. VITAL SIGNS: Stable. CHEST: Clear CARDIAC: Reveals some wheezing and rhonchi. ABDOMEN: [Nondistended , nontender]. NEUROLOGIC: The patient was alert and oriented. DESCRIPTION OF PROCEDURE: Mr. Lackey was placed in a left lateral position and IV sedation was given in small incremental doses for the patient's comfort for moderate sedation. The throat was anesthetized with Cetacaine spray. The endoscope was advanced without difficulty into the duodenum. ESOPHAGUS: Esophagus had gastroesophageal junction located at 39 cm. The GE junction was well distended. Patient did have a esophageal stent from 21 cm to 31 cm. This was full of fluid and blood which was aspirated. Distal to the stent between 31 and 37 cm was an obstructing tumor mass. Prior biopsies at [place] reveals squamous cell carcinoma. The endoscope passed through this tumor mass with some difficulty. This area was oozing blood prior to passage of the endoscope..] STOMACH: [Stomach had normal mucosa. There was some old blood in the stomach. The gastric cardia could not be well visualized.. DUODENUM: The duodenum was normal. The gastrostomy tube was placed by Dr. Quispe with a push gastrostomy tube 15 Singaporean. This was placed under direct vision with the endoscope in the gastric lumen. The patient tolerated the procedure well. IMPRESSION: 1. Obstructing distal esophageal tumor. 2. Esophageal stent in place 3. Successful placement of gastrostomy tube RECOMMENDATIONS: 1. Ppi therapy 2. May use the Gastrostomy tube. 3. Will contact radiation therapy concerning patient's location 4. Continue NPO status with esophageal obstruction 5. May need additional esophageal stent placed
[2016-09-17] MEDS: NICOTINE 21 MG PATCH TOP SCH (13:53)
[2016-09-17] MEDS: POTASSIUM CHLORIDE 20 MEQ/15 ML ORAL SOLN PEG SCH ×2 (13:53→17:33)
--- NOTE | 2016-09-17 15:00 | CAPUEKG ---
[place], [place] Test Date: 2016-09-17 Pat Name: PINA SCHROEDER Department: Room: 452 Gender: Male Bankruptcy Legal Assistant: : Requested By: Order Number: Reading MD: Nilo Francisco MD Measurements Intervals [place] Rate: 67 P: 56 MD: 136 QRS: 10 QRSD: 116 T: 19 QT: 494 QTc: 521 Interpretive Statements Normal sinus rhythm Left ventricular hypertrophy with QRS widening ST abnormality, possible digitalis effect Prolonged QT Abnormal ECG Electronically Signed On 09-17-16 14:59:43 EST by Nilo Francisco MD <[id number]> [id number]
--- NOTE | 2016-09-17 15:01 | CAPUEKG ---
[place], [place] Test Date: 2016-09-16 Pat Name: PINA SCHROEDER Department: Room: 452 Gender: Male Poker In: : Requested By: Order Number: Reading MD: Nilo Francisco MD Measurements Intervals [place] Rate: 54 P: 50 NE: 140 QRS: 17 QRSD: 116 T: -61 QT: 482 QTc: 457 Interpretive Statements Sinus rhythm with blocked premature atrial complexes Left ventricular hypertrophy with QRS widening and repolarization abnormality Abnormal ECG Electronically Signed On 09-17-16 15:00:52 EST by Nilo Francisco MD [id number]> [id number]
--- NOTE | 2016-09-17 16:33 | GENMEDPROG ---
Subjective Note: Patient had EGD today stent was found 8 cm above the GE junction. It apparently has migrated about 8 cm up into an area where there is tumor. The stent is now block by tumor. PEG tube was placed and the patient will be fed via PEG tube. Dr. mao Alfonso has been consulted regarding radiation to the area of the tumor. Notes Reviewed: Yes Events from last night noted and discussed with Clinical Staff Current Medication List: Reviewed Currently: Reports: Nausea and Vomiting, Ambulating. Denies: VORA, SOB, Fever/ Chills DVT Prophylaxis: Yes - Physical Examination Vital Signs and I&O: Last Vital Signs Temp 97.5 F 09/17/16 15:51 Pulse 73 09/17/16 15:51 Resp 18 09/17/16 15:51 BP 170/92 09/17/16 15:51 Pulse Ox 99 09/17/16 15:51 Oxygen Pulse Oxygen Saturation 99 O2 Device Nasal Cannula Oxygen Flow Rate 2 Fraction of Inspired Oxygen ( FIO2) Intake & Output 09/14/16 09/15/16 09/16/16 09/17/16 23:59 23:59 23:59 23:59 Intake Total 2188 2632 Output Total 450 1000 Balance 1738 1632 Patient's weight 66.315 kg 66.423 kg General: Alert, Cooperative, Mild distress Respiratory: Accessory Muscle Use, Rhonchi, Wheezes Cardiovascular: Regular rate and rhythm (No bradycardia or tachycardia), Normal S1, No Gallops,Rubs/Murmurs, Normal S2, Good Pedal Pulses (DP pulses 2+ bilaterally) GI: Normal bowel sounds (normal active sounds), Soft (non-distended), Non tender , No hepatospenomegaly, No masses Extremities/Musculoskeletal: negative: Edema Skin: Warm,Dry and Intact Lab/DI/Studies Reviewed: Abnormal Lab Results 09/17/16 09/17/16 09/17/16 05:10 05:10 05:29 RBC 4.62 L MCV 100 H MCH 33.5 H Neut % (Auto) 78.6 H Lymph % (Auto) 11.3 L pO2 101.0 H ABG pH 7.470 H ABG Oxyhemoglobin 94.7 L Total O2 Concentration 98.7 H Potassium 2.9 L Creatinine 0.60 L Calcium 8.3 L - Assessment (1) Atrial fibrillation with rapid ventricular response Acute I48.91 - UNSPECIFIED ATRIAL FIBRILLATION Comment/Plan: Heart rate much improved continue present plan. (2) Sudden blockage of esophagus Acute K22.2 - ESOPHAGEAL OBSTRUCTION Comment/Plan: Noted in due to migration of stent. Patient will require radiation treatment. (3) Dehydration Acute E86.0 - DEHYDRATION Comment/Plan: Continue IV fluids until patient well established with tube feeding. (4) Esophageal cancer Acute C15.9 - MALIGNANT NEOPLASM OF ESOPHAGUS, UNSPECIFIED Qualifiers: Malignant neoplasm of esophagus location: lower third Qualified Code(s): C15.5 - Malignant neoplasm of lower third of esophagus Comment/Plan: For radiation and chemo per Dr. sada Saldivar. (5) Hypokalemia Acute E87.6 - HYPOKALEMIA Comment/Plan: Replete via PEG tube. Case Care Discussed with: Patient, Consultants, Family, Nursing Staff Education/Counseling Given To: Patient, Family Member Education/Counseling Given Regarding: Diagnosis, Treatment, Prognosis, Follow Up , Disposition Plan Total Time: 45 minutes. Critical Care: No Couseling Time (>50% in counseling/coordination): No
[2016-09-17] MEDS: ENTERAL NUTRITION FORMULA PEG SCH ×4 (17:32→23:03)
[2016-09-17] MEDS: [UNRECOGNIZED DRUG - OTHER] PEG SCH ×4 (17:32→23:03)
--- NOTE | 2016-09-17 17:41 | PCM.SURGCO ---
Consultation Date: 09/17/16 [employer] Operator: Kalin Quispe Consult Reason: Poor Venous Access - History of Present Illness 61 YO WM with recently diagnosed esophageal cancer. Was admitted with A-fib. Is unable to eat as he seems obstructed. He had an esophageal stent placed at [facility]. He will be needing chemotherapy and is in need of IV access. Chief Complaint: Dizziness and generally feeling very ill with palpitations since this morning. - Past Medical and Surgical History Cardiac History: Reports: Atrial Fibrillation Respiratory History: Reports: No Significant History GI/ History: Reports: No Significant History Systemic History: Reports: No Significant History Musculoskeletal History: Reports: No Significant History Psychological History: Reports: No Significant History. Denies: Substance Use Disorder Neurological History: Reports: No Significant History Past Surgical History: Reports: No Significant History Allergies No Known Drug Allergies Allergy (Verified 09/16/16 15:27) Unknown Home Medications Ibuprofen 800 mg PO Q6H PRN 09/16/16 - Social History Social History: Denies: Substance Use Disorder - Family History Reports: No Significant History, Hypertension (parents), Cardiac Disorders ( brother) - Review of Systems Constitutional: Fatigue, Loss of Appetite, Weakness. negative: Chills Eyes: negative: Photophobia, Vision Loss Ears: negative: Hearing Loss, Tinnitus Nose: negative: Discharge, Ecchymosis Throat/Neck: negative: Hoarseness, Lymphadenopathy Respiratory: negative: Cough, Hemoptysis, Wheezing, Asthma Cardiovascular: Palpitations. negative: Chest Pain, Orthopnea Gastrointestinal: Nausea, Vomiting, Heartburn Genitourinary: negative: Dysuria, Frequency, Hematuria Neurological: negative: Gait Difficulty, Numbness, Seizure Musculoskeletal:: negative: Joint Pain, Muscle Pain Hematologic: negative: Easy Bruising, Easy Bleeding Endocrine: Weight Loss. negative: Excessive Thirst, Excessive Hunger - Physical Exam Vital Signs: Initial Vitals Temperature 98.2 F 09/16/16 11:11 Pulse Rate 128 H 09/16/16 11:11 Respiratory Rate 16 09/16/16 11:11 Blood Pressure 138/92 09/16/16 11:11 Pulse Oxygen Saturation 95 09/16/16 11:11 Constitutional: Restless Oriented to: Time, Person, Place - HEENT Head: Normal. negative: Swelling, Tender Eye: negative: Edema, Scleral Icterus Respiratory: Diminished, Rhonchi, Wheezes Cardiovascular: Normal, Irregular - GI Auscultation: Normal Palpation: negative: Enlarged liver, Enlarged spleen Tenderness: Mild, RUQ, Epigastric. negative: Guarding, Rebound Sexton's Sign: Negative - Musculoskeletal Back: negative: Ecchymosis, Laceration, CVA Tenderness Extremities: negative: Clubbing, Cyanosis, Edema - Lab Results 09/17/16 05:10 09/17/16 05:10 - Assessment/Plan (1) Poor venous access I87.8 - OTHER SPECIFIED DISORDERS OF VEINS Chronic Present on Admission: Yes (2) Atrial fibrillation with rapid ventricular response I48.91 - UNSPECIFIED ATRIAL FIBRILLATION Acute (3) Esophageal cancer C15.9 - MALIGNANT NEOPLASM OF ESOPHAGUS, UNSPECIFIED Chronic Present on Admission: Yes lower third C15.5 - Malignant neoplasm of lower third of esophagus (4) Esophageal obstruction K22.2 - ESOPHAGEAL OBSTRUCTION Chronic Present on Admission: Yes Case Care Discussed with: Patient, Consultants, Family Plan: Will arrange for port placement. He will also need G-tube placement. Will discuss further with GI.
--- NOTE | 2016-09-17 17:56 | HIMOPRPT ---
PROCEDURE: DATE OF PROCEDURE: 09/17/16 PREOPERATIVE DIAGNOSES: Esophageal cancer POSTOPERATIVE DIAGNOSES: Same PROCEDURES: Placement of Gastrostomy ( push gastrostomy technique.) SURGEON: Kalin Quispe MD ANESTHESIA: Sedation / local COMPLICATIONS: None OPERATIVE NOTE: Patient underwent EGD by Dr. Marcum. Once in the stomach, it was insufflated and the stomach was transilluminated. The skin had been infiltrated with local anesthetic. Under endoscopic visualization we placed 3 T- bar sutures percutaneously to suspend the anterior gastric wall against the abdominal musculature. An incision was made in the skin and a needle was introduced into the stomach. A guidewire was passed through the needle and the needle was removed. Sequential dilators were passed over the wire. A dilator and sheath were placed over the wire and then the dilator and wire were removed. This left the sheath in place. The Gastrostomy tube was placed through the sheath and the sheath was peeled away. This left the G-tube in the stomach. The balloon was inflated and then This was secured to the abdominal wall. Patient tolerated this well.
[2016-09-17] MEDS: TEMAZEPAM 15 MG CAP PO PRN (22:13)
[2016-09-18] MEDS: Albuterol/Ipratropium Neb 3 ML NEB NEB SCH ×4 (00:35→21:03)
[2016-09-18] MEDS: SODIUM CHLORIDE 0.9% 3 ML FLUSH FLUSH SCH ×2 (04:46→17:25)
[2016-09-18] MEDS: NS/KCl 20 mEq 1,000 ML IV SCH ×7 (04:46→23:10)
[2016-09-18] MEDS: METOPROLOL TARTRATE 50 MG TAB PO SCH ×2 (07:24→20:34)
[2016-09-18] MEDS: [UNRECOGNIZED DRUG - OTHER] PEG SCH ×5 (07:24→20:34)
[2016-09-18] MEDS: POTASSIUM CHLORIDE 20 MEQ/15 ML ORAL SOLN PEG SCH ×3 (07:24→17:21)
[2016-09-18] MEDS: ENTERAL NUTRITION FORMULA PEG SCH ×5 (07:24→20:34)
[2016-09-18] MEDS: BuPROPion 150 MG SR TAB PO SCH (07:24)
[2016-09-18 08:22] LABS: MPV 10.2 fL (7.4-10.4)
[2016-09-18 08:43] LABS: BLOOD UREA NITROGEN 7 MG/DL (9-20); CALCIUM 8.2 MG/DL (8.4-10.2); CALCULATED OSMOLALITY 265 MOs/Kg (270-290); CHLORIDE 106 mEq/L (98-107); GLUCOSE 108 MG/DL (70-99); SODIUM LEVEL 138 mEq/L (137-146)
[2016-09-18] MEDS ORDERED: ONDANSETRON HCL 4 MG/2 ML VIAL IV ONE (10:00)
[2016-09-18] MEDS ORDERED: MIDAZOLAM 2 MG/2 ML VIAL IV ONE (10:00)
[2016-09-18] MEDS ORDERED: FENTANYL 100 MCG/2 ML VIAL IV ONE (10:00)
[2016-09-18] MEDS ORDERED: PROPOFOL 200 MG/20 ML VIAL IV ONE (10:00)
[2016-09-18] MEDS ORDERED: HEPARIN 5000 UNITS/ML VIAL ONE (12:17)
[2016-09-18] MEDS ORDERED: BUPIVACAINE 0.25% 30 ML VIAL ONE (12:17)
[2016-09-18] MEDS ORDERED: LIDOCAINE 1% 30 ML VIAL (PRESERVATIVE FREE) ONE (12:17)
[2016-09-18] MEDS ORDERED: ISOVUE-300 (61%) 50 ML ONE (12:17)
[2016-09-18] MEDS: NICOTINE 21 MG PATCH TOP SCH (13:09)
[2016-09-18] MEDS ORDERED: hydrALAZINE 20 MG/ML VIAL IV PRN (13:30)
[2016-09-18] MEDS ORDERED: HYDROmorphone 1 MG INJECTION IV PRN ×2 (13:30)
[2016-09-18] MEDS ORDERED: ONDANSETRON HCL 4 MG/2 ML VIAL IV PRN (13:30)
[2016-09-18] MEDS ORDERED: FENTANYL 100 MCG/2 ML VIAL IV PRN ×2 (13:30)
[2016-09-18] MEDS ORDERED: MEPERIDINE 25 MG/ML TUBEX IV PRN (13:30)
[2016-09-18] MEDS ORDERED: LABETALOL 20 MG/4 ML SYRINGE IV PRN (13:30)
[2016-09-18] MEDS ORDERED: ONDANSETRON HCL 4 MG ODT TAB PO PRN (13:30)
--- NOTE | 2016-09-18 13:32 | HIM.ANES ---
Anesthesia Evaluation & Plan - Focused Review of Systems Cardiac History: Yes: Hx Cardiac Disorders HEENT: Yes: Cataract Removal, Hx Dysphagia, Hx Vision Problem (Glasses) Respiratory: Yes: Hx Chronic Obstructive Pulmonary Disease (COPD) Gastrointestinal: Yes: Hx Endoscopy (With esophageal stent placement) No: Hx Gastrointestinal Disorders Neurological/Musculoskeletal: No: Hx Numbness, Tingling, Weakness in Arms & Legs, Hx Neurological Disorders Psychological: No Hx Depression, No Hx Mental/Emotional Disorders Smoking Status: Former smoker Past Social History: Denies: Alcohol Use, Substance Use Disorder Alcohol use: None Surgical History: Yes: Other (Esophageal stent placement) Other Surgical History: Esophageal stent placement 08/2016 - Focused Physical Exam Mallampati: Class II Thyromental Distance: Greater than 3 Neck: Full Range of Motion Dental: Loose/Decaying Teeth Cardiovascular/Chest: Normal Respiratory: Lungs clear Other: Problem List Problem Status Onset Atrial fibrillation with rapid ventricular response Acute Dehydration Acute Hypokalemia Acute Poor venous access Acute Sudden blockage of esophagus Acute Esophageal cancer Chronic Esophageal obstruction Chronic Poor venous access Chronic PT/PTT/INR/ PT 12.8 SEC (9.2-11.2) H 09/16/16 11:28 INR 1.2 09/16/16 11:28 APTT 30.4 SEC (22-35) 09/16/16 11:28 CBC/BMP/Other 09/18/16 07:58 09/18/16 07:58 Allergies Allergy/AdvReac Type Severity Reaction Status Date / Time No Known Drug Allergies Allergy Unknown Verified 09/16/16 15:27 Home Medications Medication Instructions Recorded Last Taken Type Ibuprofen 800 mg PO Q6H PRN 09/16/16 09/16/16 02:00 History Height and Weight Patient's height 6 ft 1 in Patient's weight 66.536 kg Weight (Calculated Kilograms) 66.536 BMI 19.3 Vital Signs Temperature 98.6 F 09/18/16 11:10 Pulse Rate 65 09/18/16 13:23 Respiratory Rate 18 09/18/16 11:10 Blood Pressure 156/88 09/18/16 11:10 Pulse Oxygen Saturation 95 09/18/16 11:10 - Anesthetic Plan Anesthesia Type: MAC ASA Class: 3 -: I have examined this patient and reviewed the medical record. The patient has been assessed prior to anesthesia. Risks and benefits of anesthesia and anesthetic technique options have been discussed and all questions answered. The patient accepts the risk and desires me to proceed with the planned anesthetic.
--- NOTE | 2016-09-18 14:35 | HIMOPRPT ---
PROCEDURE: DATE OF PROCEDURE: 09/18/16 PREOPERATIVE DIAGNOSIS: Poor venous access. POSTOPERATIVE DIAGNOSIS: Poor venous access. PROCEDURE: Placement of right internal jugular catheter with subcutaneous port using ultrasound guidance and fluoroscopy. SURGEON: Kalin Quispe MD. ANESTHESIA: MAC. COMPLICATIONS: None. PROCEDURE NOTE: The patient was placed supine on the operative table. Patient was prepped and draped in usual fashion. Using ultrasound guidance, we were able to identify the right internal jugular vein. We anesthetized skin and subcutaneous tissue. We placed a large-bore needle directly into the vein under ultrasound guidance. We then passed a guidewire through the needle and we removed the needle. Using the C-arm fluoroscopy, we were able to identify the trajectory of the guidewire. With this in good position, we went ahead and infiltrated the subcutaneous tissue in the right subclavicular region. An incision was made, and we created a subcutaneous pocket to accommodate the port. We then anesthetized the skin subcutaneous tissue between the puncture site and the port site. We then made a small incision at the puncture site with a 15 blade, and then placed a tunneler between these 2, pulling the catheter through. Under fluoroscopic visualization, we were able to see and placed a dilator sheath over the guidewire without any difficulties. We removed the guidewire and the dilator leaving the sheath in place. We then passed the catheter through the sheath. We peeled the sheath away leaving the catheter in place. We then clamped the other end of the catheter and then filled the catheter with contrast. This allowed for easy visualization. We then placed traction on this until the tip was at the superior vena cava. We went ahead and then injected contrast through this and were able to visualize the tip was indeed in the superior vena cava under fluoroscopic visualization. We then cut the catheter assembled to the port placed the port in the subcutaneous pocket. We sutured this to the fascia using Vicryl sutures. We irrigated this, tested the port, we easily aspirated this and then flushed with heparinized saline, repeating this process several times. We checked the position of the catheter and port using fluoroscopy, they were in excellent position. We then irrigated the wounds, closed them with Vicryl sutures and Monocryl. Placed Dermabond over the skin edges. The patient tolerated this well. Sponge and needle counts were correct.
--- NOTE | 2016-09-18 14:36 | HIMOPRPT ---
PROCEDURE: DATE OF PROCEDURE: 09/18/16 PREOPERATIVE DIAGNOSIS: Poor venous access, and port placement. POSTOPERATIVE DIAGNOSIS: Poor venous access, and port placement. PROCEDURE: Contrast study through catheter port. SURGEON: Kalin Quispe MD. ANESTHESIA: mac COMPLICATIONS: None. PROCEDURE IN DETAIL: During placement of internal jugular vein catheter, Isovue was injected through the catheter. On usage of fluoroscopy, the catheter tip was well visualized. This was noted to be in the superior vena cava. No complicating features of placement noted. IMPRESSION: Intravenous catheter with tip in superior vena cava.
--- NOTE | 2016-09-18 14:38 | SC.ANESPOS ---
Post-Anesthesia Note LOC: Fully Awake Post-Anesthesia Assessment: Awake, Returned to Baseline, Hemodynamically Stable , Pain Control Adequate Phase I & II Recovery Complete: Yes Apparent Anesthesia Complication: No : N PACU Discharge Time: 14:17 - Vital Signs Blood Pressure: 156/88 Pulse: 65 Resp Rate: 18 O2 Sat: 95 Temp: 98.6 F - Comments Anesthesia Discharge Time Report Time 14:17
--- NOTE | 2016-09-18 15:19 | DIRPT ---
CLINICAL DATA: Port-A-Cath placement EXAM: CHEST 1 VIEW COMPARISON: Chest radiograph and chest CT September 16, 2016 FINDINGS: Port-A-Cath tip is in the superior vena cava. No pneumothorax. No edema or consolidation. Heart size and pulmonary vascularity are within normal limits. No adenopathy. IMPRESSION: Port-A-Cath tip in superior vena cava. No pneumothorax. No edema or consolidation. Electronically Signed By: Galdino Edmondson III, M.D. On: 09/18/2016 15:16
--- NOTE | 2016-09-18 16:46 | PROCONSULT ---
Date of Service:: 09/18/16 Radiation Oncology Consult: DIAGNOSIS: Squamous cell carcinoma of the esophagus HISTORY OF PRESENT ILLNESS: The patient is seen today in consultation for his recently diagnosed esophageal carcinoma. He has a several month history of progressive swallowing difficulty, worsening to the point were he was only able to consume liquids. He was ultimately seen at [facility], and underwent EGD there, revealing a stricture in his thoracic esophagus, roughly 30 cm from his incisors, and extending distally roughly 10 cm. Biopsy revealed moderately differentiated squamous cell carcinoma. An esophageal stent was placed during this procedure. CT imaging done at [facility] revealed a mass in his mid esophagus, with findings concerning for invasion into his paraesophageal fat. Also noted was a 1.1 cm gastrohepatic lymph node. He was seen in consultation by Dr. Saldivar on 09/13/2016, and systemic treatment options were discussed. He was scheduled to see me as an outpatient today, but was hospitalized over the weekend and remains an inpatient. PAST MEDICAL HISTORY: None. CURRENT MEDICATIONS: His outpatient medicines included only ibuprofen as needed. ALLERGIES: No known drug allergies. SOCIAL HISTORY: The patient is seen today with his . He has smoked roughly a pack of cigarettes per day for about 45 years, but states that he is no officially quit. FAMILY HISTORY: Negative for malignancies. REVIEW OF SYSTEMS: A 12 point review of systems was performed, and reviewed by me with the patient. He has not been able to swallow solids for several weeks, and liquids for roughly 4-5 days. He had a PEG tube placed yesterday. He reports having lost over 60 lb over the last several months. He denies nausea or vomiting. He reports no headaches or dizziness. He denies chest pain. All other systems negative. PHYSICAL EXAMINATION: Temperature 98.3 blood pressure 138/78 pulse 69. He is an alert male in no apparent distress. Examination of his lungs reveals decreased breath sounds bilaterally. Heart demonstrates a regular rate and rhythm. Extremities are without edema. Oropharynx is clear. No cervical or supraclavicular lymphadenopathy is appreciated. Examination of his abdomen reveals his PEG tube, which appears without any evidence of malfunction or infection. RADIOLOGIC DATA: Please note that I have personally reviewed the patient 's CT scan of the thorax from August 2016, with results documented above. 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 Imaging done thus far reveals no definite evidence of metastatic disease. He has had a PEG tube placed, and is scheduled to undergo Port-A-Cath placement as well. I have recommended proceeding with external beam radiation to his esophageal mass, to be delivered with concurrent systemic chemotherapy. I explained the rationale behind this recommendation, as well as the potential side effects associated with radiation in his clinical scenario. I explained that these may include, but are not limited to, fatigue, acid reflux, nausea, and skin irritation. I explained the potential long-term side effects may include, but are not limited to, injury to esophagus/ esophageal scarring, in risk of injury to other normal tissues including lung. He expressed understanding, and is agreeable to proceed. We will will make arrangements for him to undergo simulation and treatment planning today. Jonathan Hollins MD
--- NOTE | 2016-09-18 17:12 | GENMEDPROG ---
Subjective Note: Patient tolerated PEG tubes overnight. Was made NPO for placement of port. No new complaints. Notes Reviewed: Yes Events from last night noted and discussed with Clinical Staff Current Medication List: Reviewed Currently: Reports: Nausea and Vomiting, Ambulating. Denies: VORA, SOB, Fever/ Chills DVT Prophylaxis: Yes - Physical Examination Vital Signs and I&O: Last Vital Signs Temp 98.1 F 09/18/16 16:20 Pulse 60 09/18/16 16:20 Resp 18 09/18/16 16:20 BP 160/90 09/18/16 16:20 Pulse Ox 94 09/18/16 16:20 Oxygen Pulse Oxygen Saturation 94 O2 Device Nasal Cannula Oxygen Flow Rate 2 Fraction of Inspired Oxygen ( FIO2) Intake & Output 09/15/16 09/16/16 09/17/16 09/18/16 23:59 23:59 23:59 23:59 Intake Total 2188 4249 2011 Output Total 450 1400 1101 Balance 1738 2849 911 Patient's weight 66.315 kg 66.423 kg 66.536 kg General: Alert, Oriented x3, No acute distress, Well appearing, Well nourished HEENT: Normal (Normocephalic, atraumatic;EOMI.Sclera white, Nares patent, without discharge or bleeding. No oropharyngeal lesions or erythema. Mucous membranes are dry.) Neck: Non-tender, Full range of motion, Normal Trachea alignment, Normal inspection (No cervical lymphadenopathy. No supraclavicular lymphadenopathy.), No Masses palpable, Supple Respiratory: Diminished, Rhonchi, Wheezes Cardiovascular: Regular rate and rhythm (No bradycardia or tachycardia), Normal S1, No Gallops,Rubs/Murmurs, Normal S2, Good Pedal Pulses (DP pulses 2+ bilaterally) GI: Normal bowel sounds (normal active sounds), Soft (non-distended), Non tender , No hepatospenomegaly, No masses Extremities/Musculoskeletal: Normal pulses (DP pulses 2+ bilaterally) Skin: Warm,Dry and Intact, No rashes, No significant lesion Neurological: Strength at 5/5 X4 ext (Motor 5/5 throughout.), Normal tone, Cranial nerves 3-12 NL ( 2-12 grossly intact.) Psych/Mental Status: Appropriate, Normal Affect Lab/DI/Studies Reviewed: Laboratory Results - last 24 hr 09/18/16 09/18/16 07:58 07:58 WBC 8.3 RBC 4.49 L Hgb 15.1 Hct 44.0 MCV 98 H MCH 33.6 H MCHC 34.3 RDW 12.4 Plt Count 121 L MPV 10.2 Sodium 138 Potassium 3.9 D Chloride 106 Carbon Dioxide 25 Anion Gap 11 BUN 7 L Creatinine 0.40 L Estimated GFR (MDRD) > 60 Glucose 108 H Calculated Osmolality 265 L Calcium 8.2 L Magnesium 1.70 - Assessment (1) Atrial fibrillation with rapid ventricular response Acute I48.91 - UNSPECIFIED ATRIAL FIBRILLATION Comment/Plan: Doing well switched to oral beta-blockers. (2) Sudden blockage of esophagus Acute K22.2 - ESOPHAGEAL OBSTRUCTION Comment/Plan: EGD showed stents in place but had migrated North and into area of tumor. (3) Dehydration Acute E86.0 - DEHYDRATION Comment/Plan: IV fluid resuscitation. (4) Esophageal cancer Chronic C15.9 - MALIGNANT NEOPLASM OF ESOPHAGUS, UNSPECIFIED Qualifiers: Malignant neoplasm of esophagus location: lower third Qualified Code(s): C15.5 - Malignant neoplasm of lower third of esophagus Comment/Plan: For radiation and chemo per Dr. sada Saldivar. (5) Hypokalemia Acute E87.6 - HYPOKALEMIA Comment/Plan: Replete IV. Case Care Discussed with: Patient, Family Education/Counseling Given To: Patient, Family Member Education/Counseling Given Regarding: Diagnosis, Treatment, Prognosis, Follow Up , Disposition Plan Total Time: 45 minutes. Critical Care: No Couseling Time (>50% in counseling/coordination): No
[2016-09-18] MEDS: ENOXAPARIN 40 MG/0.4 ML PFS SQ SCH (17:20)
[2016-09-18] MEDS: LANSOPRAZOLE 30 MG TAB PO SCH (17:26)
[2016-09-19] MEDS: [UNRECOGNIZED DRUG - OTHER] PEG SCH ×7 (00:22→23:05)
[2016-09-19] MEDS: ENTERAL NUTRITION FORMULA PEG SCH ×7 (00:22→23:05)
[2016-09-19] MEDS: NS/KCl 20 mEq 1,000 ML IV SCH ×5 (01:08→19:44)
[2016-09-19] MEDS ORDERED: ENOXAPARIN 40 MG/0.4 ML PFS SQ SCH (02:00)
[2016-09-19] MEDS: Albuterol/Ipratropium Neb 3 ML NEB NEB SCH ×4 (02:51→19:33)
[2016-09-19 05:23] VITALS: BMI 19.5
[2016-09-19] MEDS: LANSOPRAZOLE 30 MG TAB PO SCH (06:04)
[2016-09-19] MEDS: SODIUM CHLORIDE 0.9% 3 ML FLUSH FLUSH SCH ×2 (06:05→18:02)
[2016-09-19] MEDS: POTASSIUM CHLORIDE 20 MEQ/15 ML ORAL SOLN PEG SCH ×3 (08:09→18:43)
[2016-09-19] MEDS: BuPROPion 150 MG SR TAB PO SCH ×2 (08:10→19:45)
[2016-09-19] MEDS: METOPROLOL TARTRATE 50 MG TAB PO SCH ×2 (08:10→19:45)
[2016-09-19 08:15] LABS: AUTOMATED BASOPHIL 0.4 % (0-2); AUTOMATED EOSINOPHIL 2.5 % (0-5); AUTOMATED LYMPH 15.7 % (17-44); AUTOMATED MONOCYTE 10.8 % (3-10); AUTOMATED NEUTROPHIL 70.6 % (45-76); MPV 10.7 fL (7.4-10.4)
[2016-09-19 08:31] LABS: BLOOD UREA NITROGEN 7 MG/DL (9-20); CALCIUM 8.2 MG/DL (8.4-10.2); CALCULATED OSMOLALITY 253 MOs/Kg (270-290); CHLORIDE 103 mEq/L (98-107); GLUCOSE 88 MG/DL (70-99); SODIUM LEVEL 133 mEq/L (137-146)
[2016-09-19] MEDS: NICOTINE 21 MG PATCH TOP SCH (11:27)
--- NOTE | 2016-09-19 14:22 | PCM.DCS92 ---
- Final/Secondary Discharge Diagnosis (1) Atrial fibrillation with rapid ventricular response Acute I48.91 - UNSPECIFIED ATRIAL FIBRILLATION Present on Admission: Yes Comment: Heart rate much improved continue present plan. Plan/Goal/Comment: Patient's heart rate now stable on beta-karl. He has significantly improved and is stable for discharge home. (2) Sudden blockage of esophagus Acute K22.2 - ESOPHAGEAL OBSTRUCTION Present on Admission: Yes Comment: Noted in due to migration of stent. Patient will require radiation treatment. Plan/Goal/Comment: Due to migration of stent. Patient is been referred back to [facility] for further evaluation and management possible removal of stent. He will go as an outpatient. His is to contact Latoya at [facility]. Further information per Dr. Marcum. (3) Dehydration Acute E86.0 - DEHYDRATION Present on Admission: Yes Comment: Continue IV fluids until patient well established with tube feeding. Plan/Goal/Comment: Resolved. (4) Esophageal cancer Chronic C15.9 - MALIGNANT NEOPLASM OF ESOPHAGUS, UNSPECIFIED Present on Admission: Yes C15.5 - Malignant neoplasm of lower third of esophagus Comment: For radiation and chemo per Dr. sada Saldivar. Plan/Goal/Comment: Patient receiving radiation treatment saw Dr. mao Meza yesterday for mold. Awaiting complete schedule. Cancer Center to contact patient and . (5) Hypokalemia Acute E87.6 - HYPOKALEMIA Present on Admission: Yes Comment: Replete via PEG tube. Discharge Disposition: Discharge w/ Home Health (Rn for assistance with TF) Discharge Condition: Fair Cognitive Discharge Status: Unimpaired Fuctional Discharge Status: Independent Forms: ED Discharge Instructions Physician Follow up/Referrals: Jonathan Hollins MD [Staff Physician] - Keep Scheduled Appt Sage Saldivar MD [Staff Physician] - One Week (call for appt if none already scheduled) Home Medications / New Prescriptions: New BuPROPion (BID formulation) [Wellbutrin-Sr] 150 mg PO BID #60 tab.sr.12h Lansoprazole [Prevacid Solutabs] 30 mg PO 0600 #30 tablet Metoprolol Tartrate [Lopressor] 50 mg PO BID #60 tablet Nicotine [Nicoderm] 21 mg TOP Q24H #30 pat Nutritional Supplement/Fiber [Jevity 1.5] 240 ml PEG 0800,1100,1400,1700 # 120 can Ondansetron HCl [Zofran] 8 mg PO TID PRN #30 tablet PRN Reason: Nausea/Vomiting Oxycodone Immediate Release [Oxycodone Immediate Release (OxyIR)] 5 mg PO Q6 PRN #30 tablet PRN Reason: MODERATE PAIN Temazepam [Restoril] 15 mg PO HS PRN #14 capsule PRN Reason: Sleep Or Insomnia Continue Ibuprofen 800 mg PO Q6H PRN PRN Reason: Pain Discharge Home Medication List Ibuprofen 800 mg PO Q6H PRN 09/16/16 [History Confirmed 09/16/16] BuPROPion (BID formulation) [Wellbutrin-Sr] 150 mg PO BID #60 tab.sr.12h [Rx] Lansoprazole [Prevacid Solutabs] 30 mg PO 0600 #30 tablet 09/19/16 [Rx] Metoprolol Tartrate [Lopressor] 50 mg PO BID #60 tablet 09/19/16 [Rx] Nicotine [Nicoderm] 21 mg TOP Q24H #30 pat 09/19/16 [Rx] Nutritional Supplement/Fiber [Jevity 1.5] 240 ml PEG 0800,1100,1400,1700 #120 can 09/19/16 [Rx] Ondansetron HCl [Zofran] 8 mg PO TID PRN #30 tablet 09/19/16 [Rx] Oxycodone Immediate Release [Oxycodone Immediate Release (OxyIR)] 5 mg PO Q6 PRN #30 tablet 09/19/16 [Rx] Temazepam [Restoril] 15 mg PO HS PRN #14 capsule 09/19/16 [Rx] New Discharge Medications (Rx) BuPROPion (BID formulation) [Wellbutrin-Sr] 150 mg PO BID #60 tab.sr.12h [Rx] Lansoprazole [Prevacid Solutabs] 30 mg PO 0600 #30 tablet 09/19/16 [Rx] Metoprolol Tartrate [Lopressor] 50 mg PO BID #60 tablet 09/19/16 [Rx] Nicotine [Nicoderm] 21 mg TOP Q24H #30 pat 09/19/16 [Rx] Nutritional Supplement/Fiber [Jevity 1.5] 240 ml PEG 0800,1100,1400,1700 #120 can 09/19/16 [Rx] Ondansetron HCl [Zofran] 8 mg PO TID PRN #30 tablet 09/19/16 [Rx] Oxycodone Immediate Release [Oxycodone Immediate Release (OxyIR)] 5 mg PO Q6 PRN #30 tablet 09/19/16 [Rx] Temazepam [Restoril] 15 mg PO HS PRN #14 capsule 09/19/16 [Rx] O2 Device: Room Air Diet at Discharge: Tube Feeds Activity: No Restrictions, As Tolerated Call Office For: Worsening Symptoms, Wound is Draining Pus, Fever over 100.5, Wound is Painful, Wound is Red, Pain Uncontrolled By Meds Discontinue use of:: All Types of Tobacco (Patient stated he quit over the weekend he is encouraged to continue quitting smoking.) - DC Summary Notes Hospital Course Note:: Discharge summary on patient named PINA SCHROEDER admitted to [facility] on 09/16/16 by Sunita Sotelo MD. Date of discharge is []. Unfortunate 61-year-old gentleman with esophageal cancer status post stent placement at [facility] is now unable to swallow anything. He was admitted with atrial fibrillation with rapid ventricular response. He was due to see Dr. Quispe the day after admission for evaluation of a port and PEG tube. Patient was admitted into the hospital started on rate control medications which he tolerated well. He had his port and PEG tube placed while in the hospital. He was seen by Dr. Marcum who did an EGD and discovered that the stent had migrated upward about 8 cm. It had gotten caught up in tumor. Because of that it became blocked. And patient was no longer able to eat or drink anything. Dr. Marcum contacted the assembler piano at [facility] was arranged for the patient to be seen in follow-up. The patient will continue receiving radiation treatment here at the Cancer Center and plans for chemotherapy with Dr. sada Saldivar. At this point patient is reached maximal benefit of hospitalization he is stable for discharge home. - Physical Exam Vital Signs: Last Vital Signs Temp 98.0 F 09/19/16 12:39 Pulse 88 09/19/16 12:39 Resp 18 09/19/16 12:39 BP 140/90 09/19/16 12:39 Pulse Ox 93 09/19/16 12:39 Oxygen Pulse Oxygen Saturation 93 O2 Device Room Air Oxygen Flow Rate 2 Fraction of Inspired Oxygen ( FIO2) Constitutional: No apparent distress. negative: Well nourished, Well appearing Oriented to: Time, Person, Place - HEENT Head: Normal. negative: Swelling, Tender Eye: Normal. negative: Edema, Scleral Icterus Oropharynx: Normal (Pharynx: Moist without exudate,Gums-no swelling, No oropharyngeal lesions or erythema, Mucous membranes are dry.) Nose: negative: Discharge, Ecchymosis - Respiratory/Cardiovascular Respiratory: Diminished, Rhonchi, Wheezes Cardiovascular: Normal (RRR , Normal S1, S2. No murmurs, rubs, or gallops. PMI non-displaced. Carotids: no carotid bruits. No bradycardia or tachycardia. DP pulses 2+ bilaterally.) - GI Auscultation: Normal Palpation: negative: Enlarged liver, Enlarged spleen Tenderness: Mild, RUQ, Epigastric. negative: Guarding, Rebound Sexton's Sign: Negative - Musculoskeletal Back: negative: Ecchymosis, Laceration, CVA Tenderness Extremities: negative: Clubbing, Cyanosis, Edema - Integumentary Skin: Normal (Clean, dry, and intact. No rashes. No lesions.) Lymphatics: Normal (No cervical lymphadenopathy. No supraclavicular lymphadenopathy.) - Neurologic Memory Impaired: Normal Motor Function: Normal (Motor 5/5 throughout.Normal tone, Pulses 2+ No cyanosis or edema, FROM) Cranial Nerve: Normal (CN II-XII intact sensation, strength 5/5) Cerebellar: Normal Mood Description: Normal (Fully oriented. Normal and appropriate affect.) Thought: Coherent Perception: Normal - Other Exam Other Exam Findings: Laboratory Results - last 24 hr 09/19/16 09/19/16 09/19/16 07:30 07:30 07:30 WBC 7.2 RBC 4.42 L Hgb 14.6 Hct 43.6 MCV 99 H MCH 33.0 H MCHC 33.5 RDW 12.7 Plt Count 108 L MPV 10.7 H Neut % (Auto) 70.6 Lymph % (Auto) 15.7 L [place]ilion % (Auto) 10.8 H Eos % (Auto) 2.5 Baso % (Auto) 0.4 Absolute Neuts (auto) 5.04 Absolute Lymphs (auto) 1.08 Sodium 133 L Potassium 4.5 Chloride 103 Carbon Dioxide 24 Anion Gap 11 BUN 7 L Creatinine 0.50 L Estimated GFR (MDRD) > 60 Glucose 88 Calculated Osmolality 253 L Calcium 8.2 L Magnesium 1.60
--- NOTE | 2016-09-19 14:24 | PCM.GIPROG ---
Progress Note (GI) Chief Complaint: Mr. Bryson is a 61-year-old male with recent diagnosis of squamous cell esophageal cancer. He had a esophageal stent placed in [place] 09-03-16. He presented to [facility] with dehydration and recurrent esophageal obstruction. A GI consult was obtained. EGD 09-17-16 Esophageal stent 21-31 cm Necrotic mass extending beyond the stent 31-37 cm with obstruction, Gastrostomy tube placed 15 faroese Mr. Bryson has improvement of his abdominal soreness today. He has some discomfort with coughing and movement. He is tolerating his feeding well. Radiation Therapy did see him yesterday. - Physical Exam Vital Signs: Temperature: 98.0 F (09/19/16 12:39) HR: 88 (09/19/16 12:39) RR: 18 (09/19/16 12:39) BP: 140/90 (09/19/16 12:39) Pulse Ox: 93 (09/19/16 12:39) General: Alert, Cooperative, No acute distress HEENT: negative: Icteric Sclera Respiratory: Accessory Muscle Use, Other (cough) Gastrointestinal: Soft Neurological: Normal speech Psych/Mental Status: Appropriate Result Diagrams: 09/19/16 07:30 09/19/16 07:30 - Impression and Plan (1) Esophageal obstruction Chronic K22.2 - ESOPHAGEAL OBSTRUCTION Present on Admission: Yes (2) Esophageal cancer Chronic C15.9 - MALIGNANT NEOPLASM OF ESOPHAGUS, UNSPECIFIED Present on Admission: Yes lower third C15.5 - Malignant neoplasm of lower third of esophagus Comment: For radiation and chemo per Dr. sada Saldivar. (3) Dehydration Acute E86.0 - DEHYDRATION Present on Admission: Yes Comment: Continue IV fluids until patient well established with tube feeding. (4) Atrial fibrillation with rapid ventricular response Acute I48.91 - UNSPECIFIED ATRIAL FIBRILLATION Present on Admission: Yes Comment: Heart rate much improved continue present plan. Plan: 1. Routine care of gastrostomy tube 2. Continued care of his other medical problems 3. NPO except small amounts of ice chips 4. Follow up with Dr Rojo for follow up Case Care Discussed with: Other (Case discussed with Dr Rojo [facility] concerning his esophageal stent. She would like to follow up egd to reevaluate the stent given its possible migration. Requested his to call [facility] at [phone] to arrange a time. This was discussed with Dr Sotelo by telephone.)
[2016-09-19] MEDS: ENOXAPARIN 40 MG/0.4 ML PFS SQ SCH (18:09)
[2016-09-19] MEDS: TEMAZEPAM 15 MG CAP PO PRN (23:10)
[2016-09-20] MEDS: Albuterol/Ipratropium Neb 3 ML NEB NEB SCH ×2 (01:56→07:31)
[2016-09-20] MEDS: NS/KCl 20 mEq 1,000 ML IV SCH ×2 (02:52→04:55)
[2016-09-20] MEDS: LANSOPRAZOLE 30 MG TAB PO SCH (04:55)
[2016-09-20] MEDS: SODIUM CHLORIDE 0.9% 3 ML FLUSH FLUSH SCH (04:55)
[2016-09-20 07:13] LABS: AUTOMATED BASOPHIL 0.5 % (0-2); AUTOMATED LYMPH 16.5 % (17-44); AUTOMATED MONOCYTE 9.6 % (3-10); AUTOMATED NEUTROPHIL 70.4 % (45-76); MPV 11.1 fL (7.4-10.4)
[2016-09-20 07:26] LABS: BLOOD UREA NITROGEN 7 MG/DL (9-20); CALCIUM 8.2 MG/DL (8.4-10.2); CALCULATED OSMOLALITY 242 MOs/Kg (270-290); CHLORIDE 99 mEq/L (98-107); GLUCOSE 87 MG/DL (70-99); SODIUM LEVEL 127 mEq/L (137-146)
[2016-09-20] MEDS: BuPROPion 150 MG SR TAB PO SCH (08:59)
[2016-09-20] MEDS: METOPROLOL TARTRATE 50 MG TAB PO SCH (08:59)
[2016-09-20] MEDS: POTASSIUM CHLORIDE 20 MEQ/15 ML ORAL SOLN PEG SCH (08:59)
[2016-09-20 09:00] VITALS: BP 146/85; PULSE 67; TEMP 98.1
--- NOTE | 2016-09-20 09:02 | PCM.GIPROG ---
Progress Note (GI) Chief Complaint: Mr. Bryson is a 61-year-old male with recent diagnosis of squamous cell esophageal cancer. He had a esophageal stent placed in [place] 09-03-16. He presented to [facility] with dehydration and recurrent esophageal obstruction. A GI consult was obtained. EGD 09-17-16 Esophageal stent 21-31 cm Necrotic mass extending beyond the stent 31-37 cm with obstruction, Gastrostomy tube placed 15 english Mr. Bryson continues to have less abdominal soreness. He is tolerating his feeding well. Radiation Therapy has evaluated. He reports to be seen today. He Is a he is unsure if he is to begin therapy. Discussed with [facility] yesterday they would like to see him back for re- evaluation of his stent. I discussed this with him. My office called his yesterday. 1. Routine care of gastrostomy tube 2. Continued care of his other medical problems 3. NPO except small amounts of ice chips 4. Follow up with Dr Rojo for follow up Case Care Discussed with: Other (Case discussed with Dr Rojo [facility] [place] concerning his esophageal stent. She would like to follow up egd to reevaluate the stent given its possible migration. Requested his to call [facility] at [phone] to arrange a time. This was discussed with Dr Sotelo by telephone.) - Physical Exam Vital Signs: Temperature: 98.1 F (09/20/16 08:58) HR: 67 (09/20/16 08:58) RR: 18 (09/20/16 08:58) BP: 146/85 (09/20/16 08:58) Pulse Ox: 98 (09/20/16 08:58) General: Alert, Cooperative, Mild distress HEENT: negative: Icteric Sclera Respiratory: Accessory Muscle Use Skin: Warm,Dry and Intact Neurological: Normal speech Psych/Mental Status: Appropriate Result Diagrams: 09/20/16 06:46 09/20/16 06:46 - Impression and Plan (1) Esophageal obstruction Chronic K22.2 - ESOPHAGEAL OBSTRUCTION Present on Admission: Yes (2) Esophageal cancer Chronic C15.9 - MALIGNANT NEOPLASM OF ESOPHAGUS, UNSPECIFIED Present on Admission: Yes lower third C15.5 - Malignant neoplasm of lower third of esophagus (3) Migrated esophageal stent Acute T85.528A - DISPLACEMENT OF GASTROINTESTINAL PROSTH DEV/GRFT, INIT E Comment: To follow up at [place] (4) Dehydration Acute E86.0 - DEHYDRATION Present on Admission: Yes Comment: IV fluid resuscitation. (5) Atrial fibrillation with rapid ventricular response Acute I48.91 - UNSPECIFIED ATRIAL FIBRILLATION Present on Admission: Yes Comment: Doing well switched to oral beta-blockers. Plan: 1. Routine care of gastrostomy tube 2. Continued care of his other medical problems 3. NPO except small amounts of ice chips 4. Follow up with Dr Rojo Case Care Discussed with: Other (Case discussed with Dr Rojo [facility] [place] concerning his esophageal stent. She would like to follow up egd to reevaluate the stent given its possible migration. [facility]ed [facility] to [facility] at [phone] to arrange a time. T
[2016-09-20] MEDS: ENTERAL NUTRITION FORMULA PEG SCH ×2 (09:23→11:06)
[2016-09-20] MEDS: [UNRECOGNIZED DRUG - OTHER] PEG SCH ×2 (09:23→11:06)
--- NOTE | 2016-09-20 13:13 | GENMEDPROG ---
Note 61-year-old gentleman admitted with inability to swallow in atrial fibrillation. He has esophageal cancer and had a stent placed he underwent esophagogastroduodenoscopy please see discharge summary for details. Basically the patient stayed overnight due to personal reasons. His care was completed last evening but he wished to stay overnight. There are no changes from my discharge summary previously dictated. He is stable for discharge home.
== END 2016-09-20 12:14 | disposition home health service (06) | DRG 309 ==
LOC: ED 10:51 → PCU 13:44
PROVIDERS: ADMIT Hospitalist; ATTEND Hospitalist
PROC: 0DH68UZ Insertion of Feeding Device into Stomach, Via Natural or Artificial Opening Endoscopic (ICD-10-PCS; principal; 2016-09-17)
PROC: 0JH63XZ Insertion of Tunneled Vascular Access Device into Chest Subcutaneous Tissue and Fascia, Percutaneous Approach (ICD-10-PCS; 2016-09-18)
PROC: 02HV33Z Insertion of Infusion Device into Superior Vena Cava, Percutaneous Approach (ICD-10-PCS; 2016-09-18)
PROC: B5181ZA Fluoroscopy of Superior Vena Cava using Low Osmolar Contrast, Guidance (ICD-10-PCS; 2016-09-18)
PROC: B548ZZA Ultrasonography of Superior Vena Cava, Guidance (ICD-10-PCS; 2016-09-18)
DX: I48.91 Unspecified atrial fibrillation (principal); C15.5 Malignant neoplasm of lower third of esophagus; K22.2 Esophageal obstruction; Z93.1 Gastrostomy status; E86.0 Dehydration; E87.6 Hypokalemia; F17.210 Nicotine dependence, cigarettes, uncomplicated
CPT/HCPCS: 36415; 36600; 43246; 71010; 71275; 77001; 77290; 77295; 77300; 77333; 80048; 80053; 81001; 82805; 83735; 83880; 84100; 84443; 84484; 85025; 85027; 85610; 85730; 87040; 87086; 93005; 93306; 94640; 96361; 96365; 96366; 96372; 96375; 99152; 99153; 99284; 99406; A9698; C1788; G0237; J1200; J1644; J1650; J2001; J2175; J2250; J2405; J3010; J3480; J3490; J7040; J7060; J7620; S0020